=== PATIENT | male | born 1945 | race Caucasian/White ===

== ENCOUNTER 2020-06-18 19:37 | Emergency (ER) | payer MEDICARE, OTHER ==
[~2020-06-18] VITALS: Ht 182.8 cm; Wt 77.1 kg
[2020-06-18 20:12] LABS: BASO # 0.1 10*3/uL (0.0-0.1); BASO % 0.8 % (0.0-1.0); EOS # 0.1 10*3/uL (0.0-0.4); EOS % 1.7 % (1.0-4.0); HEMATOCRIT 41.3 % (42.0-52.0); LYMPH # 1.4 10*3/uL (1.3-4.4); LYMPH % 19.1 % (27.0-41.0); MEAN CELL VOLUME 91.2 fl (80.0-94.0); MEAN CORPUSCULAR HGB 29.6 pg (27.0-31.0); MEAN CORPUSCULAR HGB CONC 32.4 g/dl (33.0-37.0); MEAN PLATELET VOLUME 9.7 fl (9.6-12.3); MONO # 0.6 10*3/uL (0.1-1.0); MONO % 7.6 % (3.0-9.0); NEUT # 5.3 10*3/uL (2.3-7.9); NEUT % 70.7 % (47.0-73.0); PLATELET COUNT AUTOMATED 237 10*3/uL (130-400); RED BLOOD COUNT 4.53 10*6/uL (4.50-5.90); RED CELL DISTRI WIDTH 12.7 % (0-14.5); WHITE BLOOD COUNT 7.5 10*3/uL (4.8-10.8)
[2020-06-18 20:27] LABS: ALBUMIN 3.3 gm/dl (3.1-4.5); ALKALINE PHOSPHATASE 58 U/L (45-117); BUN 17 mg/dl (7-24); CHLORIDE 107 mmol/L (98-107); CREATININE 1.04 mg/dL (0.70-1.30); POTASSIUM 3.6 mmol/L (3.5-5.1); SGOT/AST 14 IU/L (3-35); SGPT/ALT 15 U/L (12-78); SODIUM 140 mmol/L (136-145); TOTAL PROTEIN 6.1 gm/dL (6.4-8.2)
[2020-06-18 20:29] LABS: ACETAMINOPHEN (TYLENOL) < 5.0 ug/ml (10-30); ETHYL ALCOHOL < 3.0 mg/dl (<3)
[2020-06-18 20:53] LABS: BILIRUBIN NEGATIVE; BLOOD NEGATIVE (NEGATIVE); CLARITY CLEAR (CLEAR); COLOR YELLOW (YELLOW); GLUCOSE NEGATIVE; KETONE NEGATIVE; LEUKO ESTERASE NEGATIVE (NEGATIVE); NITRITE NEGATIVE (NEGATIVE); UROBILINOGEN 0.2 E.U./dl (0.0-1.0)
[2020-06-18 21:05] LABS: BACTERIA TRACE; EPITHELIAL CELLS 0-2; MUCOUS TRACE; RBC 0-2 rbc/hpf (0-2); URINE AMPHETAMINES < 1000 (1000ng/ml); URINE BARBITURATES < 200 (200ng/ml); URINE BENZODIAZEPINES < 200 (200ng/ml); URINE CANNABINOIDS (THC) < 50 (50ng/ml); URINE COCAINE < 300 (300ng/ml); URINE METHADONE < 300 (300ng/ml)
[2020-06-18 21:06] LABS: URINE PHENCYCLIDINE < 25 (25ng/ml)
[2020-06-18 21:07] LABS: URINE OPIATES < 300 (300ng/ml)
[2020-06-18] MEDS ORDERED: IMDUR SA30 MG PO (22:43)
[2020-06-18] MEDS ORDERED: ACID REDUCER20 MG PO (22:45)
[2020-06-18] MEDS ORDERED: RISPERIDONE0.25 M2 PO (22:46)
[2020-06-18] MEDS ORDERED: ZOLOFT50 MG PO (22:46)
[2020-06-18] MEDS ORDERED: ANORO ELLIPTA1 EACH INH (22:47)
[2020-06-18] MEDS ORDERED: ZIAC 5 MG-6.25 MG PO (22:49)
[2020-06-18] MEDS ORDERED: VENTOLIN 02.5 MG/3 M INH (22:50)
[2020-06-18] MEDS ORDERED: ST. JOSEPH ASPI81 MG PO (22:51)
[2020-06-18] MEDS ORDERED: ATORVASTATIN CA20 M1 PO (22:53)
[2020-06-18] MEDS ORDERED: ARICEPT10 M1 PO (22:54)
== END 2020-06-18 21:32 | disposition home health service (06) ==
LOC: ED 19:37
PROVIDERS: Emergency Medicine
DX: F63.81 Intermittent explosive disorder (principal); F17.200 Nicotine dependence, unspecified, uncomplicated; Z79.899 Other long term (current) drug therapy; Z79.82 Long term (current) use of aspirin

== ENCOUNTER 2020-06-18 21:22 | Inpatient (IN) | payer MEDICARE, OTHER ==
[~2020-06-18] VITALS: Ht 177.8 cm; Wt 75.9 kg
[2020-06-18 22:30] VITALS: BP 166/88
[2020-06-18] MEDS ORDERED: IMDUR SA30 MG PO (22:43)
[2020-06-18] MEDS ORDERED: ACID REDUCER20 MG PO (22:45)
[2020-06-18] MEDS ORDERED: ZOLOFT50 MG PO (22:46)
[2020-06-18] MEDS ORDERED: RISPERIDONE0.25 M2 PO (22:46)
[2020-06-18] MEDS ORDERED: ANORO ELLIPTA1 EACH INH (22:47)
[2020-06-18] MEDS ORDERED: ZIAC 5 MG-6.25 MG PO (22:49)
[2020-06-18] MEDS ORDERED: VENTOLIN 02.5 MG/3 M INH (22:50)
[2020-06-18] MEDS ORDERED: ST. JOSEPH ASPI81 MG PO (22:51)
[2020-06-18] MEDS ORDERED: ATORVASTATIN CA20 M1 PO (22:53)
[2020-06-18] MEDS ORDERED: ARICEPT10 M1 PO (22:54)
[2020-06-19 07:34] LABS: CHOLESTEROL 124 mg/dL (<200); HDL CHOLESTEROL 43 mg/dl (40-60); LDL CHOLESTEROL 60 mg/dL (9-159); TRIGLYCERIDES 105 mg/dl (<150); VLDL CHOLESTEROL 21 mg/dL (6-40)
[2020-06-19 07:51] VITALS: BP 111/69
[2020-06-19 19:34] VITALS: BP 152/65
[2020-06-20 07:49] VITALS: BP 132/74
[2020-06-20 09:43] LABS: VITAMIN D, 25-HYDROXY 29.8 ng/mL (30-100)
[2020-06-20 20:00] VITALS: BP 131/77
[2020-06-21 08:39] VITALS: BP 118/81
[2020-06-21 08:40] VITALS: BP 118/81
[2020-06-21 20:00] VITALS: BP 115/75
[2020-06-22 07:23] VITALS: BP 125/63
[2020-06-22 20:00] VITALS: BP 110/80
[2020-06-23 08:00] VITALS: BP 120/64
[2020-06-23 20:00] VITALS: BP 118/80
[2020-06-24 08:00] VITALS: BP 136/86
[2020-06-24 19:44] VITALS: BP 112/57
[2020-06-25 07:48] VITALS: BP 164/85
[2020-06-25 19:42] VITALS: BP 146/85
[2020-06-26 07:49] VITALS: BP 138/84
[2020-06-26 19:51] VITALS: BP 130/78
[2020-06-27 07:43] VITALS: BP 146/82
[2020-06-27] MEDS ORDERED: VITAMIN D3125 MC1 PO (09:37)
[2020-06-27] MEDS ORDERED: RIVASTIGMINE1 EAC2 T (09:43)
[2020-06-27] MEDS ORDERED: ROZEREM8 MG PO (09:43)
[2020-06-27] MEDS ORDERED: DIVALPROEX SOD125 M1 PO (09:43)
[2020-06-27] MEDS ORDERED: MEMANTINE HCL10 MG PO (09:43)
== END 2020-06-27 12:40 | DRG 883 ==
LOC: 3N 21:22
PROVIDERS: ADMIT Psychiatry & Neurology Psychiatry; ATTEND Psychiatry & Neurology Psychiatry
PROC: 0HBRXZZ Excision of Toe Nail, External Approach (ICD-10-PCS; principal; 2020-06-20)
DX: F63.81 Intermittent explosive disorder (principal); F02.81 Dementia in other diseases classified elsewhere, unspecified severity, with behavioral disturbance; F32.9 Major depressive disorder, single episode, unspecified; I25.10 Atherosclerotic heart disease of native coronary artery without angina pectoris; E78.5 Hyperlipidemia, unspecified; F17.210 Nicotine dependence, cigarettes, uncomplicated; D64.9 Anemia, unspecified; J44.9 Chronic obstructive pulmonary disease, unspecified; G30.9 Alzheimer's disease, unspecified; I10 Essential (primary) hypertension; K21.9 Gastro-esophageal reflux disease without esophagitis; B35.1 Tinea unguium; F41.9 Anxiety disorder, unspecified; Z20.828 Contact with and (suspected) exposure to other viral communicable diseases; R73.9 Hyperglycemia, unspecified; E83.51 Hypocalcemia; E77.8 Other disorders of glycoprotein metabolism; Z71.6 Tobacco abuse counseling; Z85.048 Personal history of other malignant neoplasm of rectum, rectosigmoid junction, and anus; Z98.49 Cataract extraction status, unspecified eye; Z79.899 Other long term (current) drug therapy; Z79.82 Long term (current) use of aspirin